=== PATIENT | female | born 1950 | race Two or more races ===

== ENCOUNTER → 2017-07-03 | Outpatient (CLI) | payer MEDICARE, OTHER ==
--- NOTE | 2017-07-03 15:21 | RAD ---
ABDOMEN SUPINE UPRIGHT Clinical Indication: ABDOMINAL PAIN,BLOATING AND CONSTIPATION X 4 MTHS Comparison: Chest radiograph dated 12/28/2009 Findings: No obvious free air. Nonobstructive bowel gas pattern. Moderate colonic stool. Left upper quadrant surgical clips. Bilateral upper abdominal calcifications are nonspecific, possibly costochondral in origin or vascular. No acute osseous abnormality. Post surgical changes of lower lumbar fusion. Neurostimulator device with leads in the mid thoracic spine. IMPRESSION: 1. Nonobstructive bowel gas pattern. 2. Moderate colonic stool.
== END | disposition home or self-care (01) ==
LOC: DXRADRC 11:50
PROVIDERS: ATTEND Nurse Practitioner Family
DX: K59.00 Constipation, unspecified (principal); I70.0 Atherosclerosis of aorta; R14.0 Abdominal distension (gaseous)
CPT/HCPCS: 74020

== ENCOUNTER → 2017-11-22 | Outpatient (CLI) | payer MEDICARE, OTHER ==
--- NOTE | 2017-11-22 14:28 | RAD ---
2 view CXR: Clinical indications: Cough for more than 48 hours. Chest congestion. Comparison: December 08, 2009. Findings: No acute lung infiltrate or pleural effusion or pulmonary edema or lung mass or pneumothorax is seen. The heart size, pulmonary vasculature, mediastinum and both art are unremarkable. The osseous structures appear intact. A thoracic spinal canal stimulator device has been placed in the interim. Impression: No acute radiographic abnormality is seen.
== END | disposition home or self-care (01) ==
LOC: PMG 13:20
PROVIDERS: ATTEND Physician Assistant Medical
DX: R09.89 Other specified symptoms and signs involving the circulatory and respiratory systems (principal); R05 Cough
CPT/HCPCS: 71046